=== PATIENT | female | born 1985 | race American Indian/Alaskan Native ===

== ENCOUNTER 2018-11-22 05:33 | Outpatient (CLI) | payer MEDICAID | END 2018-11-22 06:56 | disposition home or self-care (01) | LOC: TRG 05:33 | PROVIDERS: ATTEND Obstetrics & Gynecology | DX: O62.8 Other abnormalities of forces of labor (principal); Z3A.37 37 weeks gestation of pregnancy | CPT/HCPCS: 59025 ==